=== PATIENT | female | born 1940 | race African-American/Black ===

== ENCOUNTER 2018-03-22 10:17 | Inpatient (IN) | payer BC, MEDICARE ==
[~2018-03-22] VITALS: Ht 154.9 cm; Wt 74.4 kg
[~2018-03-22 10:17] MED LIST: ASPI-1159 PO; ATOR20TA PO; CARI350T27 PO; DICL1TAB56 PO; ESOM40CA PO; FURO40TA5 PO; LISINOPRIL PO; MECL-109 PO; ZOLP10TA2 PO
[2018-03-22 11:33] LABS: BASOPHILS % 0.5 % (0.0-2.0); EOSINOPHILS % 0.3 % (0.0-5.0); HEMATOCRIT. 46.6 % (36.0-48.0); HEMOGLOBIN. 15.5 g/dL (12.0-16.0); LYMPHOCYTES % 23.3 % (20.0-50.0); MEAN CORPUSCULAR HEMOGLOBIN 29.9 pg (28.0-32.0); MEAN CORPUSCULAR VOLUME 89.6 fL (81.0-99.0); MEAN PLATELET VOLUME 8.7 fl (7.4-10.4); MONOCYTES % 8.1 % (2.0-8.0); NEUTROPHILS % 67.8 % (40.0-76.0); PLATELET 349 x1000/uL (130-400)
[2018-03-22 11:39] LABS: CHLORIDE 99 mEq/L (98-107)
[2018-03-22] MEDS ORDERED: MORPHINE SULFATE 4 MG/ML CPJ (NOT FOR IM USE) IV ONE (12:15)
[2018-03-22] MEDS ORDERED: MORPHINE SULFATE 10 MG/ML CPJ IV ONE (13:05)
[2018-03-22] MEDS ORDERED: POTASSIUM CHLORIDE 20MEQ TABLET SR PO ONE (13:45)
[2018-03-22 15:35] VITALS: BP 129/76
[2018-03-22 16:58] VITALS: BP 129/76
[2018-03-22] MEDS ORDERED: [UNRECOGNIZED DRUG - OTHER] PO PRN (17:30)
[2018-03-22] MEDS ORDERED: DICLOFENAC SODIUM PO PRN (17:30)
[2018-03-22] MEDS ORDERED: MISOPROSTOL PO PRN (17:30)
[2018-03-22] MEDS ORDERED: MORPHINE SULFATE 10MG/5ML ORAL SOLN UDC PO PRN (17:45)
[2018-03-22] MEDS: FUROSEMIDE 40MG TABLET PO SCH (18:42)
[2018-03-22] MEDS: LISINOPRIL 20MG TABLET PO SCH (18:42)
[2018-03-22] MEDS: PANTOPRAZOLE 40MG DR TABLET PO SCH (18:42)
[2018-03-22] MEDS: CARISOPRODOL 350 MG TABLET PO SCH (18:42)
[2018-03-22 20:00] VITALS: BP 115/49
[2018-03-22] MEDS ORDERED: ZOLPIDEM TARTRATE 5MG TABLET PO SCH (21:00)
[2018-03-22] MEDS: ATORVASTATIN CALCIUM 20MG TABLET PO SCH (21:22)
[2018-03-22] MEDS: ZOLPIDEM TARTRATE 5MG TABLET PO PRN (21:23)
[2018-03-22] MEDS: ENOXAPARIN 30MG/0.3ML SYR SUBCUT SCH (21:25)
[2018-03-22 22:00] VITALS: BP 115/49
[2018-03-23] VITALS: BP 95/47
[2018-03-23 05:38] VITALS: BP 118/63
[2018-03-23 06:30] LABS: HEMATOCRIT. 47.8 % (36.0-48.0); MEAN CORPUSCULAR VOLUME 89.6 fL (81.0-99.0); PLATELET 355 x1000/uL (130-400); RED BLOOD CELL COUNT 5.33 mill/uL (4.2-5.4); RED CELL DISTRIBUTION WIDTH 15.2 % (11.6-14.6)
[2018-03-23] MEDS: FUROSEMIDE 40MG TABLET PO SCH (08:45)
[2018-03-23] MEDS: PANTOPRAZOLE 40MG DR TABLET PO SCH (08:45)
[2018-03-23] MEDS: LISINOPRIL 20MG TABLET PO SCH (08:46)
[2018-03-23] MEDS: ASPIRIN 81MG EC TABLET PO SCH (08:46)
[2018-03-23 08:47] VITALS: BP 107/60
[2018-03-23] MEDS: ENOXAPARIN 30MG/0.3ML SYR SUBCUT SCH ×2 (08:47→21:02)
[2018-03-23 09:06] LABS: CHLORIDE 101 mEq/L (98-107)
[2018-03-23] MEDS: CARISOPRODOL 350 MG TABLET PO SCH (09:39)
[2018-03-23 12:00] VITALS: BP 96/54
[2018-03-23 13:50] LABS: PLATELET ESTIMATE NORMAL
[2018-03-23 16:00] VITALS: BP 115/52
[2018-03-23] MEDS ORDERED: POTASSIUM CHLORIDE INJ 40 MEQ in DEXT 5% WATER 250 ML IV NR (16:30)
[2018-03-23] MEDS ORDERED: POTASSIUM CHLORIDE 20MEQ TABLET SR PO NR (18:45)
[2018-03-23 20:00] VITALS: BP 114/40
[2018-03-23] MEDS ORDERED: INFLUENZA VIRUS VACCINE(AFLURIA) 0.5ML SYR IM ONE (20:30)
[2018-03-23] MEDS: ATORVASTATIN CALCIUM 20MG TABLET PO SCH (21:02)
[2018-03-23] MEDS: ZOLPIDEM TARTRATE 5MG TABLET PO PRN (21:02)
[2018-03-24] VITALS: BP 99/58
[2018-03-24 04:00] VITALS: BP 110/51
[2018-03-24 08:34] VITALS: BP 103/40
[2018-03-24] MEDS: PANTOPRAZOLE 40MG DR TABLET PO SCH (09:09)
[2018-03-24] MEDS: CARISOPRODOL 350 MG TABLET PO SCH (09:09)
[2018-03-24] MEDS: ASPIRIN 81MG EC TABLET PO SCH (09:09)
[2018-03-24] MEDS: FUROSEMIDE 40MG TABLET PO SCH (09:09)
[2018-03-24] MEDS: LISINOPRIL 20MG TABLET PO SCH (09:09)
[2018-03-24] MEDS: ENOXAPARIN 30MG/0.3ML SYR SUBCUT SCH (09:09)
[2018-03-24 11:35] VITALS: BP 114/61
[2018-03-24 15:04] VITALS: BP 114/61
== END 2018-03-24 16:33 | disposition home or self-care (01) | DRG 206 ==
LOC: ER 10:17 → 6WST 12:28 → ENRESERV 13:18
PROVIDERS: ADMIT Internal Medicine; ATTEND Internal Medicine
DX: M94.0 Chondrocostal junction syndrome [Tietze] (principal); E11.9 Type 2 diabetes mellitus without complications; I10 Essential (primary) hypertension; E78.5 Hyperlipidemia, unspecified; M06.9 Rheumatoid arthritis, unspecified; M19.90 Unspecified osteoarthritis, unspecified site; E87.6 Hypokalemia; G89.4 Chronic pain syndrome; Z88.0 Allergy status to penicillin; Z88.6 Allergy status to analgesic agent; Z88.8 Allergy status to other drugs, medicaments and biological substances; Z79.82 Long term (current) use of aspirin; Z79.899 Other long term (current) drug therapy
CPT/HCPCS: 36415; 71045; 83880; 84484; 85007; 85027; 90686; 93005; 96374; 99285; J1650; J2270; J3480; J7050; J7060

== ENCOUNTER 2018-05-01 14:03 | Inpatient (IN) | payer MEDICARE ==
[~2018-05-01] VITALS: Ht 154.9 cm; Wt 72.1 kg
[2018-05-01 18:33] LABS: CHLORIDE 98 mEq/L (98-107)
[2018-05-01 18:37] LABS: INR 1.1; PROTHROMBIN TIME 10.7 sec (9.1-11.1)
[2018-05-01 18:38] LABS: BASOPHILS % 0.4 % (0.0-2.0); EOSINOPHILS % 0.1 % (0.0-5.0); HEMATOCRIT. 47.6 % (36.0-48.0); HEMOGLOBIN. 15.8 g/dL (12.0-16.0); MEAN CORPUSCULAR HEMOGLOBIN 30.2 pg (28.0-32.0); MEAN CORPUSCULAR VOLUME 91.1 fL (81.0-99.0); MEAN PLATELET VOLUME 10.3 fl (7.4-10.4); MONOCYTES % 7.9 % (2.0-8.0); NEUTROPHILS % 68.6 % (40.0-76.0); PLATELET 347 x1000/uL (130-400); RED BLOOD CELL COUNT 5.22 mill/uL (4.2-5.4); RED CELL DISTRIBUTION WIDTH 15.1 % (11.6-14.6)
[2018-05-01 18:40] LABS: CLARITY URINE CLEAR (CLEAR); COLOR URINE ORANGE (YELLOW); KETONES URINE NEGATIVE (NEGATIVE); LEUKOCYTE ESTERASE URINE 1+ (NEGATIVE); NITRITE URINE POSITIVE (NEGATIVE); OCCULT BLOOD URINE NEGATIVE (NEGATIVE); PROTEIN URINE NEGATIVE (NEGATIVE); SPECIFIC GRAVITY URINE 1.012 (1.005-1.030)
[2018-05-01] MEDS ORDERED: LEVOFLOXACIN 750MG PREMIX 150 ML IV ONE (19:00)
[2018-05-01] MEDS ORDERED: AZITHROMYCIN 500 MG TABLET PO ONE (19:00)
[2018-05-01] MEDS ORDERED: CEFTRIAXONE SODIUM 250 MG/VIAL IM ONE (19:00)
[2018-05-01] MEDS ORDERED: POTASSIUM CHLORIDE 20MEQ TABLET SR PO ONE (20:30)
[2018-05-01] MEDS ORDERED: ASPIRIN 81MG TABLET PO ONE (22:00)
[2018-05-02] MEDS ORDERED: DEXT 5%/0.45% NACL KCL 10MEQ/L 1,000 ML IV SCH (00:35)
[2018-05-02] MEDS ORDERED: CLONIDINE 0.1MG TABLET PO PRN (00:45)
[2018-05-02] MEDS ORDERED: ONDANSETRON HCL 4MG/2ML INJ IV PRN (00:45)
[2018-05-02] MEDS ORDERED: HYDROCODONE/ACETAMINOPHEN 5/325MG TABLET PO PRN (00:45)
[2018-05-02] MEDS ORDERED: DOCUSATE SODIUM 100MG CAPSULE PO PRN (00:45)
[2018-05-02] MEDS ORDERED: ACETAMINOPHEN 325MG TABLET PO PRN (00:45)
[2018-05-02] MEDS ORDERED: ASPIRIN 81MG TABLET PO NR (04:30)
[2018-05-02] MEDS: DEXT 5%/0.45% NACL KCL 10MEQ/L 1,000 ML IV NR ×2 (04:53→17:50)
[2018-05-02 10:00] VITALS: BP 103/64
[2018-05-02 10:40] VITALS: BP 103/64
[2018-05-02 12:00] VITALS: BP 103/64
[2018-05-02] MEDS: ENOXAPARIN 40MG/0.4ML SYR SUBCUT SCH (12:37)
[2018-05-02] MEDS: LISINOPRIL 20MG TABLET PO SCH (13:30)
[2018-05-02] MEDS: FUROSEMIDE 40MG TABLET PO SCH (14:05)
[2018-05-02] MEDS: OMEPRAZOLE 20MG CAPSULE EXTENDED RELEASE PO SCH (14:05)
[2018-05-02] MEDS: ACETAMINOPHEN WITH CODEINE 300/60MG TABLET PO PRN (15:00)
[2018-05-02 16:00] VITALS: BP 109/53
[2018-05-02 20:00] VITALS: BP 163/68
[2018-05-02] MEDS: ATORVASTATIN CALCIUM 20MG TABLET PO SCH (20:48)
[2018-05-02] MEDS: ZOLPIDEM TARTRATE 5MG TABLET PO PRN (20:48)
[2018-05-02] MEDS ORDERED: LEVOFLOXACIN 500MG PREMIX 100 ML IV SCH (21:00)
[2018-05-03] VITALS: BP 114/61
[2018-05-03 04:00] VITALS: BP 121/64
[2018-05-03] MEDS: OMEPRAZOLE 20MG CAPSULE EXTENDED RELEASE PO SCH (06:15)
[2018-05-03 06:30] LABS: BASOPHILS % 0.3 % (0.0-2.0); EOSINOPHILS % 0.5 % (0.0-5.0); HEMATOCRIT. 42.8 % (36.0-48.0); HEMOGLOBIN. 14.1 g/dL (12.0-16.0); MEAN CORPUSCULAR HEMOGLOBIN 30.1 pg (28.0-32.0); MEAN CORPUSCULAR VOLUME 91.4 fL (81.0-99.0); MEAN PLATELET VOLUME 9.1 fl (7.4-10.4); MONOCYTES % 11.6 % (2.0-8.0); NEUTROPHILS % 53.6 % (40.0-76.0); PLATELET 326 x1000/uL (130-400); RED BLOOD CELL COUNT 4.69 mill/uL (4.2-5.4); RED CELL DISTRIBUTION WIDTH 15.2 % (11.6-14.6)
[2018-05-03 07:02] LABS: CHLORIDE 104 mEq/L (98-107)
[2018-05-03 07:15] LABS: LDL CHOLESTEROL 122 mg/dL (5-100)
[2018-05-03 07:16] LABS: HDL CHOLESTEROL 58 mg/dL (40-59)
[2018-05-03 08:00] VITALS: BP 133/58
[2018-05-03] MEDS ORDERED: POTASSIUM CHLORIDE 20MEQ/PACKET PO NR (08:15)
[2018-05-03] MEDS: FUROSEMIDE 40MG TABLET PO SCH (08:47)
[2018-05-03] MEDS: LISINOPRIL 20MG TABLET PO SCH (08:47)
[2018-05-03] MEDS: ENOXAPARIN 40MG/0.4ML SYR SUBCUT SCH (08:48)
[2018-05-03] MEDS ORDERED: POTASSIUM CHLORIDE INJ 40 MEQ in DEXT 5% WATER 250 ML IV NR (09:00)
[2018-05-03 12:05] VITALS: BP 120/52
[2018-05-03] MEDS: ACETAMINOPHEN WITH CODEINE 300/60MG TABLET PO PRN (12:06)
[2018-05-03 16:00] VITALS: BP 105/48
[2018-05-03] MEDS ORDERED: LORAZEPAM 1MG TABLET PO PRN (16:45)
[2018-05-03] MEDS ORDERED: LEVOFLOXACIN 500MG PREMIX 100 ML IV SCH (18:00)
[2018-05-03 20:00] VITALS: BP 102/53
[2018-05-03] MEDS: ZOLPIDEM TARTRATE 5MG TABLET PO PRN (20:46)
[2018-05-03] MEDS: ATORVASTATIN CALCIUM 20MG TABLET PO SCH (20:46)
[2018-05-04] VITALS: BP 124/74
[2018-05-04 04:00] VITALS: BP 108/55
[2018-05-04] MEDS: OMEPRAZOLE 20MG CAPSULE EXTENDED RELEASE PO SCH (05:26)
[2018-05-04] MEDS: ACETAMINOPHEN WITH CODEINE 300/60MG TABLET PO PRN (05:29)
[2018-05-04 06:51] LABS: CHLORIDE 104 mEq/L (98-107)
[2018-05-04 07:16] LABS: BASOPHILS % 0.3 % (0.0-2.0); EOSINOPHILS % 0.7 % (0.0-5.0); HEMATOCRIT. 40.5 % (36.0-48.0); HEMOGLOBIN. 13.4 g/dL (12.0-16.0); LYMPHOCYTES % 33.3 % (20.0-50.0); MEAN CORPUSCULAR HEMOGLOBIN 30.2 pg (28.0-32.0); MEAN PLATELET VOLUME 9.2 fl (7.4-10.4); MONOCYTES % 9.5 % (2.0-8.0); NEUTROPHILS % 56.2 % (40.0-76.0); PLATELET 324 x1000/uL (130-400); RED BLOOD CELL COUNT 4.45 mill/uL (4.2-5.4); RED CELL DISTRIBUTION WIDTH 15.3 % (11.6-14.6)
[2018-05-04 08:00] VITALS: BP 110/46
[2018-05-04] MEDS: FUROSEMIDE 40MG TABLET PO SCH (09:52)
[2018-05-04] MEDS: ENOXAPARIN 40MG/0.4ML SYR SUBCUT SCH (09:54)
[2018-05-04] MEDS: LISINOPRIL 20MG TABLET PO SCH (10:06)
[2018-05-04 12:00] VITALS: BP 122/48
[2018-05-04] MEDS: POTASSIUM CHLORIDE 20MEQ TABLET SR PO SCH (14:18)
[2018-05-04 16:00] VITALS: BP 101/43
[2018-05-04 20:00] VITALS: BP 101/44
[2018-05-04] MEDS: ZOLPIDEM TARTRATE 5MG TABLET PO PRN (20:59)
[2018-05-04] MEDS: ATORVASTATIN CALCIUM 20MG TABLET PO SCH (20:59)
[2018-05-05] VITALS: BP 120/55
[2018-05-05 04:00] VITALS: BP 119/57
[2018-05-05 04:11] LABS: CHLAMYDIA TRACHOMATIS NAA Negative (Negative); NEISSERIA GONORRHOEAE NAA Negative (Negative)
[2018-05-05 07:10] LABS: BASOPHILS % 0.4 % (0.0-2.0); EOSINOPHILS % 0.8 % (0.0-5.0); HEMATOCRIT. 40.9 % (36.0-48.0); HEMOGLOBIN. 13.4 g/dL (12.0-16.0); LYMPHOCYTES % 32.9 % (20.0-50.0); MEAN CORPUSCULAR HEMOGLOBIN 29.9 pg (28.0-32.0); MEAN CORPUSCULAR VOLUME 91.6 fL (81.0-99.0); MEAN PLATELET VOLUME 9.3 fl (7.4-10.4); MONOCYTES % 8.4 % (2.0-8.0); NEUTROPHILS % 57.5 % (40.0-76.0); PLATELET 319 x1000/uL (130-400); RED BLOOD CELL COUNT 4.47 mill/uL (4.2-5.4); RED CELL DISTRIBUTION WIDTH 15.4 % (11.6-14.6)
[2018-05-05 07:17] LABS: CHLORIDE 106 mEq/L (98-107)
[2018-05-05] MEDS ORDERED: FAMOTIDINE 20MG TABLET PO SCH (09:00)
[2018-05-05] MEDS: LISINOPRIL 20MG TABLET PO SCH (09:11)
[2018-05-05] MEDS: ENOXAPARIN 40MG/0.4ML SYR SUBCUT SCH (09:11)
[2018-05-05] MEDS: POTASSIUM CHLORIDE 20MEQ TABLET SR PO SCH (09:11)
[2018-05-05] MEDS: ACETAMINOPHEN WITH CODEINE 300/60MG TABLET PO PRN ×2 (09:12→14:18)
[2018-05-05 12:22] VITALS: BP 112/52
[2018-05-05 16:50] VITALS: BP 112/52
== END 2018-05-05 17:15 | disposition home health service (06) | DRG 689 ==
LOC: ER 14:03 → 5WST 21:41 → EDBEDREQ 21:53 → EDBEDREQTM 21:53 → SUPCPDRO 05-02 00:34 → ENRESERV 05-02 07:32
PROVIDERS: ADMIT Hospitalist; ATTEND Hospitalist
DX: N39.0 Urinary tract infection, site not specified (principal); G93.41 Metabolic encephalopathy; E11.9 Type 2 diabetes mellitus without complications; E87.6 Hypokalemia; I10 Essential (primary) hypertension; Z88.0 Allergy status to penicillin; Z88.5 Allergy status to narcotic agent; Z88.6 Allergy status to analgesic agent; Z88.8 Allergy status to other drugs, medicaments and biological substances; Z79.82 Long term (current) use of aspirin; Z79.899 Other long term (current) drug therapy
CPT/HCPCS: 36415; 71045; 80061; 83735; 83880; 84132; 84484; 87210; 87491; 87591; 92610; 93005; 93880; 93970; 96365; 96372; 97161; 99285; J0696; J1650; J1956; J3480; J7040; J7050; J7060

== ENCOUNTER 2018-05-31 09:40 | Inpatient (IN) | payer MEDICARE ==
[~2018-05-31] VITALS: Ht 154.9 cm; Wt 69.4 kg
[2018-05-31] MEDS ORDERED: MORPHINE SULFATE 4 MG/ML CPJ (NOT FOR IM USE) IV STA (11:03)
[2018-05-31] MEDS ORDERED: ONDANSETRON HCL 4MG/2ML INJ IV STA (11:03)
[2018-05-31] MEDS ORDERED: SODIUM CHLORIDE 0.9% 1,000 ML IV ONE (11:03)
[2018-05-31 11:24] LABS: CLARITY URINE CLEAR (CLEAR); COLOR URINE ORANGE (YELLOW); KETONES URINE NEGATIVE (NEGATIVE); LEUKOCYTE ESTERASE URINE TRACE (NEGATIVE); NITRITE URINE POSITIVE (NEGATIVE); OCCULT BLOOD URINE NEGATIVE (NEGATIVE); PROTEIN URINE NEGATIVE (NEGATIVE); SPECIFIC GRAVITY URINE 1.009 (1.005-1.030); UROBILINOGEN URINE 0.2 E.U./dL (0.2-1.0)
[2018-05-31 11:27] LABS: BASOPHILS % 0.4 % (0.0-2.0); CHLORIDE 96 mEq/L (98-107); EOSINOPHILS % 0.2 % (0.0-5.0); HEMATOCRIT. 51.4 % (36.0-48.0); HEMOGLOBIN. 17.2 g/dL (12.0-16.0); LYMPHOCYTES % 19.3 % (20.0-50.0); MEAN CORPUSCULAR HEMOGLOBIN 30.5 pg (28.0-32.0); MEAN PLATELET VOLUME 9.9 fl (7.4-10.4); MONOCYTES % 9.1 % (2.0-8.0); PLATELET 360 x1000/uL (130-400); RED BLOOD CELL COUNT 5.64 mill/uL (4.2-5.4); RED CELL DISTRIBUTION WIDTH 16.1 % (11.6-14.6)
[2018-05-31] MEDS ORDERED: KCL 20MEQ/100ML PREMIX 100 ML IV ONE (13:00)
[2018-05-31] MEDS ORDERED: LEVOFLOXACIN 750MG PREMIX 150 ML IV ONE (13:00)
[2018-05-31] MEDS ORDERED: MORPHINE SULFATE 4 MG/ML CPJ (NOT FOR IM USE) IV ONE (16:30)
[2018-05-31] MEDS ORDERED: POTASSIUM CHLORIDE 20MEQ TABLET SR PO NR ×2 (18:30→22:00)
[2018-05-31] MEDS ORDERED: PHENAZOPYRIDINE HCL 100MG TABLET PO SCH (18:45)
[2018-05-31] MEDS ORDERED: CLONIDINE 0.1MG TABLET PO PRN (19:00)
[2018-05-31] MEDS ORDERED: ONDANSETRON HCL 4MG/2ML INJ IV PRN (19:00)
[2018-05-31] MEDS ORDERED: GUAIFENESIN 200MG/10ML SUGAR FREE UDC PO PRN (19:00)
[2018-05-31] MEDS ORDERED: DIPHENHYDRAMINE 50MG/ML VIAL IV PRN (19:00)
[2018-05-31] MEDS: ACETAMINOPHEN 325MG TABLET PO PRN (20:48)
[2018-05-31 21:36] VITALS: BP 131/89
[2018-05-31 21:45] VITALS: BP 131/89
[2018-05-31] MEDS: LORAZEPAM 0.5MG TABLET PO PRN (22:16)
[2018-05-31] MEDS: SODIUM CHLORIDE 0.9% INJ 3ML FLUSH IVF SCH (22:16)
[2018-06-01] VITALS: BP 136/49
[2018-06-01] MEDS: KETOROLAC 30MG/ML VIAL IV PRN ×2 (00:10→07:27)
[2018-06-01] MEDS: LORAZEPAM 0.5MG TABLET PO PRN ×4 (03:58→17:19)
[2018-06-01] MEDS: ACETAMINOPHEN 325MG TABLET PO PRN ×2 (03:58→21:41)
[2018-06-01 04:00] VITALS: BP 113/56
[2018-06-01] MEDS: OMEPRAZOLE 20MG CAPSULE EXTENDED RELEASE PO SCH (06:43)
[2018-06-01] MEDS: SODIUM CHLORIDE 0.9% INJ 3ML FLUSH IVF SCH ×3 (06:43→20:47)
[2018-06-01 07:23] LABS: CHLORIDE 102 mEq/L (98-107)
[2018-06-01 08:00] VITALS: BP 116/62
[2018-06-01] MEDS: PHENAZOPYRIDINE HCL 100MG TABLET PO SCH ×3 (08:30→17:14)
[2018-06-01 12:00] VITALS: BP 108/55
[2018-06-01] MEDS ORDERED: LEVOFLOXACIN 500MG PREMIX 100 ML IV SCH (12:00)
[2018-06-01 16:00] VITALS: BP 120/53
[2018-06-01 20:00] VITALS: BP 110/58
[2018-06-01] MEDS ORDERED: TEMAZEPAM 15MG CAPSULE PO PRN (20:15)
[2018-06-02] VITALS: BP 112/60
[2018-06-02 04:00] VITALS: BP 150/60
[2018-06-02] MEDS: SODIUM CHLORIDE 0.9% INJ 3ML FLUSH IVF SCH ×2 (06:35→14:04)
[2018-06-02] MEDS: OMEPRAZOLE 20MG CAPSULE EXTENDED RELEASE PO SCH (06:35)
[2018-06-02 08:00] VITALS: BP 121/45
[2018-06-02] MEDS: PHENAZOPYRIDINE HCL 100MG TABLET PO SCH ×2 (09:10→14:04)
[2018-06-02] MEDS: LORAZEPAM 0.5MG TABLET PO PRN (09:10)
[2018-06-02] MEDS: ACETAMINOPHEN 325MG TABLET PO PRN ×2 (10:26→15:26)
[2018-06-02 12:00] VITALS: BP 123/58
[2018-06-02] MEDS: LEVOFLOXACIN 500MG PREMIX 100 ML IV SCH ×2 (13:00→14:04)
[2018-06-02 16:00] VITALS: BP 117/47
[2018-06-02 17:17] VITALS: BP 128/56
== END 2018-06-02 17:45 | disposition home or self-care (01) | DRG 690 ==
LOC: ER 09:40 → ENRESERV 20:48 → 5WST 21:46
PROVIDERS: ADMIT Internal Medicine; ATTEND Internal Medicine
DX: N30.00 Acute cystitis without hematuria (principal); E87.6 Hypokalemia; I10 Essential (primary) hypertension; Z88.0 Allergy status to penicillin; Z90.710 Acquired absence of both cervix and uterus; Z87.440 Personal history of urinary (tract) infections; Z88.6 Allergy status to analgesic agent; Z88.8 Allergy status to other drugs, medicaments and biological substances; Z79.82 Long term (current) use of aspirin; Z79.899 Other long term (current) drug therapy
CPT/HCPCS: 36415; 71045; 74176; 80048; 82962; 83735; 87077; 87186; 93005; 93970; 96365; 96375; 99285; J1885; J1956; J2270; J2405; J3480; J7030; J7040

== ENCOUNTER 2018-06-22 10:53 | Emergency (ER) | payer MEDICARE ==
[~2018-06-22] VITALS: Ht 154.9 cm; Wt 75.0 kg
[~2018-06-22 10:53] MED LIST changes: -LISINOPRIL PO; -MECL-109 PO
[2018-06-22] MEDS ORDERED: SODIUM CHLORIDE 0.9% 1,000 ML IV ONE (11:20)
[2018-06-22 11:44] LABS: BASOPHILS % 0.5 % (0.0-2.0); EOSINOPHILS % 0.6 % (0.0-5.0); HEMATOCRIT. 40.7 % (36.0-48.0); HEMOGLOBIN. 13.6 g/dL (12.0-16.0); LYMPHOCYTES % 29.1 % (20.0-50.0); MEAN CORPUSCULAR HEMOGLOBIN 30.8 pg (28.0-32.0); MEAN CORPUSCULAR VOLUME 92.5 fL (81.0-99.0); MEAN PLATELET VOLUME 8.6 fl (7.4-10.4); MONOCYTES % 7.5 % (2.0-8.0); NEUTROPHILS % 62.3 % (40.0-76.0); PLATELET 290 x1000/uL (130-400); RED BLOOD CELL COUNT 4.41 mill/uL (4.2-5.4); RED CELL DISTRIBUTION WIDTH 16.3 % (11.6-14.6)
[2018-06-22 11:48] LABS: CHLORIDE 108 mEq/L (98-107); PROTHROMBIN TIME 10.7 sec (9.6-11.0)
[2018-06-22] MEDS ORDERED: ACETAMINOPHEN 325MG TABLET PO ONE (12:00)
[2018-06-22 12:27] LABS: CLARITY URINE CLEAR (CLEAR); COLOR URINE YELLOW (YELLOW); KETONES URINE NEGATIVE (NEGATIVE); LEUKOCYTE ESTERASE URINE 1+ (NEGATIVE); NITRITE URINE NEGATIVE (NEGATIVE); OCCULT BLOOD URINE NEGATIVE (NEGATIVE); PROTEIN URINE NEGATIVE (NEGATIVE); SPECIFIC GRAVITY URINE 1.026 (1.005-1.030); UROBILINOGEN URINE 0.2 E.U./dL (0.2-1.0)
[2018-06-22] MEDS ORDERED: ONDANSETRON HCL 4MG/2ML INJ IV ONE (13:00)
[2018-06-22] MEDS ORDERED: MORPHINE SULFATE 4 MG/ML CPJ (NOT FOR IM USE) IV ONE (13:00)
[2018-06-22] MEDS ORDERED: CEFTRIAXONE 1 G PREMIX 50 ML IV ONE (13:00)
[2018-06-22 15:11] VITALS: BP 127/73
== END 2018-06-22 16:21 | disposition home or self-care (01) ==
LOC: ER 10:53
DX: N30.00 Acute cystitis without hematuria (principal); I10 Essential (primary) hypertension; E78.00 Pure hypercholesterolemia, unspecified; Z88.0 Allergy status to penicillin; Z88.6 Allergy status to analgesic agent; Z88.8 Allergy status to other drugs, medicaments and biological substances; Z90.710 Acquired absence of both cervix and uterus
CPT/HCPCS: 36415; 80053; 81003; 83605; 83690; 85025; 85610; 87086; 96365; 96375; 99283; J0696; J2270; J2405; J7030

== ENCOUNTER 2018-11-12 14:15 | Inpatient (IN) | payer MEDICARE ==
[~2018-11-12] VITALS: Ht 154.9 cm; Wt 68.0 kg
[~2018-11-12 14:15] MED LIST changes: -ASPI-1159 PO; +ASPI-1393 PO
[2018-11-12 15:21] LABS: CLARITY URINE CLOUDY (CLEAR); COLOR URINE YELLOW (YELLOW); KETONES URINE TRACE (NEGATIVE); LEUKOCYTE ESTERASE URINE NEGATIVE (NEGATIVE); NITRITE URINE NEGATIVE (NEGATIVE); OCCULT BLOOD URINE NEGATIVE (NEGATIVE); PH URINE 5.5 (4.5-8.0); PROTEIN URINE NEGATIVE (NEGATIVE); SPECIFIC GRAVITY URINE 1.028 (1.005-1.030)
[2018-11-12 15:51] LABS: CHLORIDE 97 mEq/L (98-107); PROTHROMBIN TIME 10.7 sec (9.6-11.0)
[2018-11-12 15:52] LABS: BASOPHILS % 0.9 % (0.0-2.0); EOSINOPHILS % 0.4 % (0.0-5.0); HEMATOCRIT. 47.9 % (36.0-48.0); LYMPHOCYTES % 25.8 % (20.0-50.0); MEAN CORPUSCULAR HEMOGLOBIN 30.2 pg (28.0-32.0); MEAN CORPUSCULAR VOLUME 90.1 fL (81.0-99.0); MONOCYTES % 8.9 % (2.0-8.0); PLATELET 348 x1000/uL (130-400); RED BLOOD CELL COUNT 5.32 mill/uL (4.2-5.4); RED CELL DISTRIBUTION WIDTH 15.7 % (11.6-14.6)
[2018-11-12] MEDS ORDERED: POTASSIUM CHLORIDE 20MEQ TABLET SR PO ONE (16:30)
[2018-11-12] MEDS ORDERED: MORPHINE SULFATE 4 MG/ML CPJ (NOT FOR IM USE) IV ONE (16:45)
[2018-11-12 20:30] VITALS: BP 156/74
[2018-11-12 21:15] VITALS: BP 156/74
[2018-11-13] VITALS: BP 131/64
[2018-11-13] MEDS ORDERED: CLONIDINE 0.1MG TABLET PO PRN
[2018-11-13] MEDS ORDERED: NA PHOS,M-B/NA PHOS,DI-BA ENEMA 118ML PR PRN
[2018-11-13] MEDS ORDERED: IPRATROPIUM/ALBUTEROL 0.5-3(2.5)MG/3ML NEB INH PRN
[2018-11-13] MEDS ORDERED: ACETAMINOPHEN 650MG/20.3ML UDC GT PRN
[2018-11-13] MEDS ORDERED: DOCUSATE SODIUM 100MG CAPSULE PO PRN
[2018-11-13] MEDS ORDERED: DICLOFENAC SODIUM PO PRN
[2018-11-13] MEDS ORDERED: ACETAMINOPHEN 650MG SUPP PR PRN
[2018-11-13] MEDS ORDERED: ONDANSETRON HCL 4MG/2ML INJ IV PRN
[2018-11-13] MEDS ORDERED: [UNRECOGNIZED DRUG - OTHER] PO PRN
[2018-11-13] MEDS ORDERED: ACETAMINOPHEN 325MG TABLET PO PRN
[2018-11-13] MEDS ORDERED: GUAIFENESIN 200MG/10ML SUGAR FREE UDC PO PRN
[2018-11-13] MEDS ORDERED: MISOPROSTOL PO PRN
[2018-11-13] MEDS ORDERED: MAGNESIUM/ALUMINUM HYDROXIDE/SIMETHICONE 30ML UDC PO PRN
[2018-11-13] MEDS ORDERED: ZOLPIDEM TARTRATE 5MG TABLET PO PRN (01:45)
[2018-11-13] MEDS: DIPHENHYDRAMINE 50MG/ML VIAL IV PRN ×2 (03:21→13:12)
[2018-11-13] MEDS: DEXT 5%/0.45% NACL 1000ML 1,000 ML IV SCH ×2 (03:26→15:50)
[2018-11-13] MEDS: ENOXAPARIN 40MG/0.4ML SYR SUBCUT SCH ×2 (03:35→22:01)
[2018-11-13 04:00] VITALS: BP 157/60
[2018-11-13 06:17] LABS: BASOPHILS % 0.3 % (0.0-2.0); EOSINOPHILS % 0.6 % (0.0-5.0); HEMATOCRIT. 42.8 % (36.0-48.0); HEMOGLOBIN. 14.4 g/dL (12.0-16.0); LYMPHOCYTES % 30.9 % (20.0-50.0); MEAN CORPUSCULAR HEMOGLOBIN 30.5 pg (28.0-32.0); MEAN CORPUSCULAR VOLUME 90.7 fL (81.0-99.0); MEAN PLATELET VOLUME 8.7 fl (7.4-10.4); MONOCYTES % 10.6 % (2.0-8.0); NEUTROPHILS % 57.6 % (40.0-76.0); PLATELET 326 x1000/uL (130-400); RED BLOOD CELL COUNT 4.72 mill/uL (4.2-5.4)
[2018-11-13] MEDS: SODIUM CHLORIDE 0.9% INJ 3ML FLUSH IVF SCH ×3 (06:29→22:02)
[2018-11-13] MEDS: PANTOPRAZOLE 40MG DR TABLET PO SCH (06:29)
[2018-11-13 06:46] LABS: CHLORIDE 98 mEq/L (98-107)
[2018-11-13 06:58] LABS: CREATINE KINASE 39 IU/L (26-192); HDL CHOLESTEROL 63 mg/dL (40-59)
[2018-11-13 07:00] LABS: LDL CHOLESTEROL 137 mg/dL (5-100)
[2018-11-13 07:01] LABS: CREATINE KINASE MB FRACTION < 1.0 ng/mL (0.5-3.6)
[2018-11-13 08:00] VITALS: BP 110/68
[2018-11-13] MEDS: ASPIRIN 81MG EC TABLET PO SCH (08:19)
[2018-11-13] MEDS: POTASSIUM CHLORIDE 20MEQ TABLET SR PO SCH ×3 (08:19→16:35)
[2018-11-13] MEDS ORDERED: MEDICATION NOT ON FORMULARY EA (Esomeprazole Mag Trihydrate (Nexium) 40 MG) PO SCH (09:00)
[2018-11-13] MEDS ORDERED: FUROSEMIDE 40MG TABLET PO SCH (09:00)
[2018-11-13] MEDS ORDERED: CARISOPRODOL 350 MG TABLET PO PRN (09:00)
[2018-11-13 09:05] LABS: HEMATOCRIT 45.8 % (36.0-48.0); HEMOGLOBIN 15.2 g/dL (12.0-16.0); MEAN CORPUSCULAR HEMOGLOBIN 30.3 pg (28.0-32.0); MEAN CORPUSCULAR VOLUME 91.1 fL (81.0-99.0); PLATELET 313 x1000/uL (130-400); RED BLOOD CELL COUNT 5.03 mill/uL (4.2-5.4); RED CELL DISTRIBUTION WIDTH 15.8 % (11.6-14.6)
[2018-11-13 10:05] LABS: CHLORIDE 97 mEq/L (98-107)
[2018-11-13] MEDS ORDERED: POTASSIUM CHLORIDE INJ 40 MEQ in DEXT 5% WATER 480 ML IV NR (10:30)
[2018-11-13 12:00] VITALS: BP 126/50
[2018-11-13] MEDS: HYDROCODONE/ACETAMINOPHEN 5/325MG TABLET PO PRN ×2 (12:10→16:41)
[2018-11-13 16:00] VITALS: BP 118/68
[2018-11-13 16:22] LABS: CREATINE KINASE 44 IU/L (26-192)
[2018-11-13 16:23] LABS: CREATINE KINASE MB FRACTION < 1.0 ng/mL (0.5-3.6)
[2018-11-13] MEDS ORDERED: BISACODYL 5MG TABLET PO NR (18:00)
[2018-11-13] MEDS ORDERED: POTASSIUM CHLORIDE 20MEQ TABLET SR PO NR (18:00)
[2018-11-13 20:00] VITALS: BP 114/64
[2018-11-13] MEDS ORDERED: MAGNESIUM CITRATE 300ML SOLUTION PO NR (20:00)
[2018-11-13] MEDS ORDERED: ATORVASTATIN CALCIUM 20MG TABLET PO SCH (21:00)
[2018-11-14] VITALS: BP 146/56
[2018-11-14 04:00] VITALS: BP 117/61
[2018-11-14 06:33] LABS: CHLORIDE 104 mEq/L (98-107)
[2018-11-14] MEDS ORDERED: POTA8CAP20 MT (06:48)
[2018-11-14] MEDS ORDERED: MAGNESIUM CITRATE 300ML SOLUTION PO NR (07:00)
[2018-11-14] MEDS: SODIUM CHLORIDE 0.9% INJ 3ML FLUSH IVF SCH (07:07)
[2018-11-14] MEDS: DEXT 5%/0.45% NACL 1000ML 1,000 ML IV SCH (07:09)
[2018-11-14 08:00] VITALS: BP 120/57
[2018-11-14] MEDS: ASPIRIN 81MG EC TABLET PO SCH (08:33)
[2018-11-14] MEDS: POTASSIUM CHLORIDE 20MEQ TABLET SR PO SCH ×2 (08:33→17:19)
[2018-11-14] MEDS: PANTOPRAZOLE 40MG DR TABLET PO SCH (08:33)
[2018-11-14] MEDS: HYDROCODONE/ACETAMINOPHEN 5/325MG TABLET PO PRN ×2 (09:17→14:13)
[2018-11-14 12:00] VITALS: BP 113/59
[2018-11-14 16:00] VITALS: BP 108/81
[2018-11-14 17:54] VITALS: BP 111/75
== END 2018-11-14 18:32 | disposition home or self-care (01) | DRG 392 ==
LOC: ER 14:55 → 5WST 17:38 → ENRESERV 19:56 → 7WST 11-13 18:16
PROVIDERS: ADMIT Family Medicine; ATTEND Family Medicine
DX: R10.9 Unspecified abdominal pain (principal); E87.6 Hypokalemia; K59.00 Constipation, unspecified; I10 Essential (primary) hypertension; E78.5 Hyperlipidemia, unspecified; K57.30 Diverticulosis of large intestine without perforation or abscess without bleeding; E78.00 Pure hypercholesterolemia, unspecified; F17.210 Nicotine dependence, cigarettes, uncomplicated; R07.9 Chest pain, unspecified; E11.65 Type 2 diabetes mellitus with hyperglycemia; Z87.440 Personal history of urinary (tract) infections; Z90.710 Acquired absence of both cervix and uterus; Z79.82 Long term (current) use of aspirin; Z79.899 Other long term (current) drug therapy; Z88.0 Allergy status to penicillin; Z88.8 Allergy status to other drugs, medicaments and biological substances
CPT/HCPCS: 36415; 71045; 74176; 80048; 80061; 81003; 82550; 82553; 83735; 84484; 85027; 93005; 96374; 99285; J1200; J1650; J2270; J3480; J7060